=== PATIENT | male | born 1960 | race Two or more races ===

== ENCOUNTER → 2024-07-22 | Emergency (ER) | payer OTHER ==
[~2024-07-22] VITALS: Ht 175.3 cm; Wt 85.3 kg
[~2024-07-22] MED LIST: KETOROLAC TROMETHAMINE 30 MG VIAL IV STA; PROMETHAZINE HCL 50 MG/ML AMPUL IM STA; SODIUM CHLORIDE 0.45 % 1,000 ML IV ONE; TAMSULOSIN HCL 0.4 MG CAP PO STA
[2024-07-22 06:46] LABS: HEMATOCRIT 46.1 % (39.0-48.0); HEMOGLOBIN 15.4 g/dL (13-16.00); MEAN CELL VOLUME 88.1 fL (80.0-100.00); MEAN CORPUSCULAR HEMOGLOBIN 29.5 pg (27.00-32.0); MEAN CORPUSCULAR HGB CONC 33.4 g/dl (32.0-36.0); PLATELET COUNT 271 K/uL (150-450); RED BLOOD COUNT 5.23 M/uL (4.00-6.00); RED CELL DISTRIBUTION WIDTH 15.5 % (11.5-14.5)
[2024-07-22 07:02] LABS: URINE APPEARANCE Clear; URINE BILIRRUBIN Negative (NEGATIVE); URINE BLOOD Moderate; URINE COLOR Yellow; URINE GLUCOSE Negative (NEGATIVE); URINE KETONE 15 (NEGATIVE); URINE LEUKOCYTE Negative; URINE NITRATE Negative; URINE PROTEIN Trace (NEGATIVE); URINE UROBILINOGEN 0.2 E.U./dl
[2024-07-22 07:08] LABS: URINE RBC 26.5 uL (0.0-20.8); URINE WBC 2.3 uL (0.0-23.2)
[2024-07-22 07:09] LABS: URINE BACTERIA 2.4 uL (0.0-1933); URINE CAST 0.14 uL (0.0-1.40); URINE EPITHELIAL CELLS 1.1 uL (0.0-38.8)
[2024-07-22 07:10] LABS: CALCIUM 9.6 mg/dL (8.5-10.1); CREATININE SERUM 0.91 mg/dL (0.70-1.30); GFR 83.61; POTASSIUM 4.12 mEq/L (3.5-5.1)
== END | disposition home or self-care (01) ==
LOC: ER 04:50
PROVIDERS: General Practice
DX: R10.31 Right lower quadrant pain (principal); N13.30 Unspecified hydronephrosis; N20.2 Calculus of kidney with calculus of ureter; K57.90 Diverticulosis of intestine, part unspecified, without perforation or abscess without bleeding; Z88.0 Allergy status to penicillin